=== PATIENT | male | born 1980 | race Caucasian/White ===

== ENCOUNTER 2019-10-22 10:41 | Inpatient (IN) | payer OTHER ==
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
[2019-10-22 11:27] LABS: ABS Basophils 0.1 10^3/ul (0-0.2); ABS Eosinophils 0.2 10^3/ul (0-0.6); ABS Monocytes 0.7 10^3/ul (0-0.8); ABS Neutrophils 6.9 10^3/ul (1.5-7.7); Eosinophil % 1.9 %; Hematocrit 43 % (42-52); Lymphocyte % 20.1 %; Mean Corpuscular HGB Conc 35 g/dL (31-36); Mean Corpuscular Hemoglobin 32 pg (27-31); Mean Corpuscular Volume 92 fL (80-94); Mean Platelet Volume 8.7 fL (7.4-10.4); Platelet Count 168 10^3/uL (150-450); Red Blood Count 4.66 10^6 /uL (4.18-5.48); Red Cell Distribution Width 13 % (10-15); White Blood Count 9.9 10^3/uL (3.5-10.8)
[2019-10-22 11:59] LABS: ALT 13 U/L (7-52); AST 15 U/L (13-39); Albumin 4.4 g/dL (3.2-5.2); Alkaline Phosphatase 54 U/L (34-104); Anion Gap 5 mmol/L (2-11); BUN/Creatinine Ratio 18.4 (8-20); Blood Urea Nitrogen 16 mg/dL (6-24); CO2 Carbon Dioxide 27 mmol/L (22-32); Calcium 9.3 mg/dL (8.6-10.3); Chloride 105 mmol/L (101-111); EGFR African American 118.2 (>60); EGFR Non-African American 97.7 (>60); Globulin 2.2 g/dL (2-4); Glucose 114 mg/dL (70-100); Potassium 4.2 mmol/L (3.5-5.0); Sodium 137 mmol/L (135-145); Total Protein 6.6 g/dL (6.4-8.9)
--- OUTSIDE RECORDS SUMMARY | 2019-10-22 12:00 | XMS REPORT | Continuity of Care Document ---
:1980 External Reference #:[id number] Author Name Stephen Yin MD (transmitted by agent of provider Kacie Martin) Address [address] [place] [address] Care Team Providers Name Role Phone Roseann Miranda PA - Medical Care Team Information St[employer]er [phone] Problems Description No Information Available Social History Type Date Description Comments Sex Unknown ETOH Use Denies alcohol use Tobacco Use Start: Unknown Patient is a current smoker, smokes every day Recreational Drug Use Current Drug User Recreational Drug Use Cannabis vapor script as needed Smoking Status Reviewed: 09/26/19 Patient is a current smoker, smokes every day Exercise Type/Frequency Does not exercise Allergies, Adverse Reactions, Alerts Active Allergies Reaction Severity Comments Date Cephalexin 05/29/2017 Latex 05/29/2017 Codeine 05/29/2017 Bee Sting 05/29/2017 Medications Active Medications SIG Qnty Indications Ordering Provider Date Protonix 1 by mouth daily Unknown 40mg Tablets DR Stahl 2-Ramiro use as directed Unknown 0.3mg/0.3ML Solution Auto-Inject Ventolin HFA 2 puffs by mouth Unknown four times a day as 108(90Base) mcg/Act needed Aerosol Albuterol Sulfate 1 vial via Unknown nebulizer 4 times (2.5mg/3ML) 0.083% daily as needed Nebulizer Diltiazem HCL ER Unknown 120mg Caps ER 12HR Immunizations Description No Information Available Vital Signs Date Vital Result Comment 09/26/2019 1:59pm Height 69 inches 5'9" Weight 207.00 lb Heart Rate 85 /min BP Systolic Sitting 120 mmHg BP Diastolic Sitting 82 mmHg Body Temperature 98.0 F BMI (Body Mass Index) 30.6 kg/m2 09/18/2017 12:30pm Height 69 inches 5'9" Weight 235.00 lb Heart Rate 76 /min BP Systolic Recheck 132 mmHg BP Diastolic Recheck 84 mmHg Respiratory Rate 16 /min Body Temperature 98.6 F BMI (Body Mass Index) 34.7 kg/m2 Results Description No Information Available Procedures Description No Information Available Medical Devices Description No Information Available Encounters Description No Information Available Assessments Date Code Description Provider 09/26/2019 K43.2 Incisional hernia without obstruction or Stephen Yin MD gangrene Plan of Treatment Future Appointment(s):10/28/2019 1:30 pm - Stephen Yin MD at [facility] AT Jzpxtdmn63/06/2020 10:00 am - Stephen Yin MD at [facility] AT Ozfdtlxc58/12/2019 - Stephen Yin MDK43.2 Incisional hernia without obstruction or gangreneFollow up:Please follow the instructions for the scheduling of your surgery. Please call if you have any questions or concerns. Functional Status Description No Information Available Mental Status Description No Information Available Referrals Description No Information Available
--- OUTSIDE RECORDS SUMMARY | 2019-10-22 12:00 | XMS REPORT | Continuity of Care Document ---
:1980 External Reference #:[id number] Author Name Stephen Yin MD (transmitted by agent of provider Kacie Martin) Address [address] [place] [address] Care Team Providers Name Role Phone Roseann Miranda PA - Medical Care Team Information [employer] Engineer [phone] Problems Description No Information Available Social History [...] - Stephen Yin MD at [facility] AT Zvbmymkp78/06/2020 10:00 am - Stephen Yin MD at [facility] AT Axsaghfu95/12/2019 - Stephen Yin MDK43.2 Incisional hernia without obstruction or gangreneFollow up:Please follow the instructions for the scheduling of your surgery. Please call if you have any questions or concerns. Functional Status Description No Information Available Mental Status Description No Information Available Referrals Description No Information Available
[2019-10-22 12:03] LABS: Acetaminophen < 15 mcg/mL; Alcohol < 10 mg/dL (<10); Salicylate < 2.50 mg/dL (<30)
[2019-10-22 12:17] LABS: TSH (Thyroid Stimulating Horm) 0.99 mcIU/mL (0.34-5.60)
[2019-10-22] MEDS ORDERED: Nicotine* 4MG (FRUIT FLAVOR) GUM PO PRN (15:42)
[2019-10-22] MEDS ORDERED: Acetaminophen TAB* 325 MG PO PRN (15:45)
[2019-10-22] MEDS ORDERED: Al Hydrox/Mg Hydrox/Simet LIQ* 30 ML UDC PO PRN (15:45)
[2019-10-22] MEDS ORDERED: Haloperidol TAB* 5 MG PO PRN (15:58)
[2019-10-22] MEDS ORDERED: LORazepam TAB(*) 1 MG PO PRN (15:59)
[2019-10-22] MEDS ORDERED: Nicotine PATCH 14 MG/24 HR* PATCH TRANSDERM ONE (16:34)
[2019-10-22 16:38] LABS: Urine Appearance Clear; Urine Bilirubin Negative (Negative); Urine Blood Negative (Negative); Urine Color Straw; Urine Glucose Negative (Negative); Urine Ketones Negative (Negative); Urine Nitrite Negative (Negative); Urine Protein Negative (Negative); Urine Specific Gravity 1.008 (1.010-1.030); Urine Urobilinogen Negative (Negative)
[2019-10-22 16:58] LABS: Urine Benzodiazepine Screen None Detected (None Detect); Urine Opiates Screen None Detected (None Detect)
[2019-10-22] MEDS ORDERED: LORazepam INJ* 2 MG/ML 1 ML VIAL ONE (17:26)
[2019-10-22] MEDS: Nicotine PATCH 21 MG/24 HR* PATCH TRANSDERM SCH (18:17)
[2019-10-22] MEDS: Vitamin THERAPEUTIC TAB PO SCH (18:17)
[2019-10-22] MEDS: Pantoprazole TAB * 40 MG TAB PO SCH (23:55)
[2019-10-23] MEDS: Diltiazem CD CAP* 240 MG PO SCH (07:47)
[2019-10-23] MEDS: Pantoprazole TAB * 40 MG TAB PO SCH ×2 (07:47→20:30)
[2019-10-23] MEDS: Nicotine PATCH 21 MG/24 HR* PATCH TRANSDERM SCH (07:48)
[2019-10-23 08:30] LABS: HDL Cholesterol 47.8 mg/dL
[2019-10-23] MEDS: Vitamin THERAPEUTIC TAB PO SCH (09:22)
[2019-10-23] MEDS ORDERED: cloNIDine TAB* 0.1 MG PO PRN (11:01)
[2019-10-23] MEDS: Lithium Carbonate TAB* 300 MG PO SCH ×2 (12:32→20:30)
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
--- NOTE | 2019-10-23 16:05 | PN ---
BSU: Group Therapy Note - Service Type Service Type: 39639 Group Psychotherapy - Medication Education Group: Patient was attentive and participatory in group, and remained in good behavioral control. Patient expressed positive insights regarding relevant treatment interventions. Patient stated understanding of material discussed and had appropriate questions. Patient defensive and irritable when redirected.
[2019-10-23] MEDS: Nicotine Lozenge* mini 4 MG LOZNG.MINI MT PRN ×2 (17:43→20:30)
[2019-10-23] MEDS: ARIPiprazole TAB* 5 MG PO SCH (20:30)
[2019-10-24] MEDS: Pantoprazole TAB * 40 MG TAB PO SCH ×2 (08:11→20:09)
[2019-10-24] MEDS: Vitamin THERAPEUTIC TAB PO SCH (08:12)
[2019-10-24] MEDS: Lithium Carbonate TAB* 300 MG PO SCH ×2 (08:12→20:09)
[2019-10-24] MEDS: Diltiazem CD CAP* 240 MG PO SCH (08:13)
[2019-10-24] MEDS: Nicotine PATCH 21 MG/24 HR* PATCH TRANSDERM SCH (08:14)
[2019-10-24] MEDS: Nicotine Lozenge* mini 4 MG LOZNG.MINI MT PRN ×4 (10:18→20:33)
--- NOTE | 2019-10-24 11:44 | PN ---
BSU: Group Therapy Note - Service Type Service Type: 10070 Group Psychotherapy - Cognitive Behavioral Group Therapy ( CBT):Patient was attentive and participatory in CBT programming this morning, and remained in good behavioral control. Patient expressed positive insights regarding relevant treatment interventions and goals. However he needed redirection at the end of the group regarding discussion of appropriate use of humour.
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
[2019-10-24] MEDS: ARIPiprazole TAB* 5 MG PO SCH (20:09)
[2019-10-25] MEDS: Pantoprazole TAB * 40 MG TAB PO SCH (08:21)
[2019-10-25] MEDS: Vitamin THERAPEUTIC TAB PO SCH (08:21)
[2019-10-25] MEDS: Lithium Carbonate TAB* 300 MG PO SCH (08:21)
[2019-10-25] MEDS: Diltiazem CD CAP* 240 MG PO SCH (09:01)
[2019-10-25] MEDS: Nicotine PATCH 21 MG/24 HR* PATCH TRANSDERM SCH (09:02)
[2019-10-25] MEDS: Nicotine Lozenge* mini 4 MG LOZNG.MINI MT PRN (10:56)
[2019-10-25 11:17] VITALS: BP 142/97
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
== END 2019-10-25 12:05 | disposition home or self-care (01) | DRG 753 ==
LOC: ED 10:41 → BSU 15:42
PROVIDERS: ADMIT Psychiatry & Neurology Psychiatry; ATTEND Psychiatry & Neurology Psychiatry
PROC: GZHZZZZ Group Psychotherapy (ICD-10-PCS; principal; 2019-10-23)
DX: F31.9 Bipolar disorder, unspecified (principal); F60.2 Antisocial personality disorder; K21.9 Gastro-esophageal reflux disease without esophagitis; Z62.810 Personal history of physical and sexual abuse in childhood; F17.210 Nicotine dependence, cigarettes, uncomplicated; Z88.5 Allergy status to narcotic agent; Z88.1 Allergy status to other antibiotic agents; Z91.030 Bee allergy status; Z91.040 Latex allergy status; Z81.1 Family history of alcohol abuse and dependence; Z79.899 Other long term (current) drug therapy
CPT/HCPCS: 36415; 80053; 80061; 80178; 80307; 80320; 80329; 81003; 83036; 84443; 85025; 90853; 93005; 96130; 99222; 99231; 99238; 99284; A9270-GY; G0480; J2060